=== PATIENT | female | born 1995 | race Caucasian/White ===

== ENCOUNTER 2021-12-30 05:49 | Emergency (ER) | payer OTHER, SELFPAY ==
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
[2021-12-30 05:50] VITALS: BP 133/79; PULSE 94; RESP 17; TEMP 37.1; O2SAT 99
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
--- NOTE | 2021-12-30 07:27 | PC.NURSE ---
Received pt care from Cat, pt resting in bed. Pt taken for x-rays at this time
[2021-12-30 08:23] VITALS: BP 104/66; PULSE 68; RESP 20; O2SAT 99
== END 2021-12-30 08:27 | disposition home or self-care (01) ==
PROVIDERS: Emergency Provider Emergency Medicine
DX: S02.2XXA Fracture of nasal bones, initial encounter for closed fracture (principal); V49.40XA Driver injured in collision with unspecified motor vehicles in traffic accident, initial encounter
CPT/HCPCS: 70450; 70486; 72125; 99284